=== PATIENT | female | born 1995 | race Caucasian/White ===

== ENCOUNTER 2022-01-01 11:01 | Outpatient (CLI) | payer BC | END 2022-01-01 11:02 | disposition home or self-care (01) | LOC: CSHLAB 11:01 | PROVIDERS: ATTEND Advanced Practice Midwife | DX: Z20.822 Contact with and (suspected) exposure to COVID-19 (principal) | CPT/HCPCS: 87811 ==

== ENCOUNTER 2022-01-02 18:00 | Inpatient (IN) | payer BC ==
[~2022-01-02 18:00] MED LIST: Butorphanol Tartrate 1 MG/ML VIAL SLOW IVP PRN; Carboprost 250 MCG/ML AMP IM PRN; Diphenoxylate HCl/Atropine Tablet PO PRN; HYDROcodone/Acetaminophen 5/325 mg Tablet PO PRN; Ibuprofen 800 MG TAB PO PRN; Lactated Ringer's 1,000 ML IV SCH; Lidocaine 1% (PF) 30 ML VIAL SC PRN; Methylergonovine 0.2 MG/ML VIAL IM PRN; Misoprostol 100 MCG TAB VAG SCH; Misoprostol 200 MCG TAB PR PRN; NS w/ Oxytocin 30 units 500 ML IV SCH; Ondansetron PF 4 MG/2 ML Vial IVP PRN; Penicillin G Potassium 5 MILL.UNITS in Sodium Chloride 0.9% 100 ML IVPB SCH; Promethazine HCl 25 MG/ML VIAL IM PRN; hydrALAZINE 20 MG/ML VIAL SLOW IVP PRN
[2022-01-02 21:12] VITALS: BMI 32.1
[2022-01-02 22:08] LABS: Hemoglobin 10.4 g/dL (12.0-15.5); Mean Corpuscular Hemoglobin 27.3 pg (27.0-33.0); Mean Corpuscular Volume 82.7 fl (81.6-98.3); Mean Platelet Volume 11.3 fl (7.4-10.4); Platelet Count 180 10x3/uL (150-450); RBC Distribution Width 14.2 % (11.5-14.5); Red Blood Cell (RBC) Count 3.81 10x6/uL (3.90-5.03); White Blood Cell (WBC) Count 7.1 10x3/uL (3.5-10.5)
[2022-01-02 22:18] LABS: Glucose 89 mg/dL (70-105)
[2022-01-02 22:43] LABS: HBSAg Index 0.21 S/CO (0-0.99); Hep B Surf Ag Non-Reactive S/CO (NonReactive); Syphilis Antibody Nonreactive (Nonreactive); Syphilis Antibody Index 0.05 S/CO (<1.00 Non-Reactive)
[2022-01-03] MEDS: Penicillin G 2.5 MILL.units 2.5 MILL.UNITS in Premix Bag 1 BAG IVPB SCH ×3 (12:14→21:04)
[2022-01-03] MEDS ORDERED: Fentanyl 2 mcg/Bup 0.1% Cadd 100 ML ONE (19:27)
[2022-01-03] MEDS ORDERED: Ondansetron PF 4 MG/2 ML Vial IVP PRN ×2 (21:05→22:29)
[2022-01-03] MEDS ORDERED: Acetaminophen 325 MG TAB PO PRN (21:05)
[2022-01-03] MEDS ORDERED: Naloxone HCl 0.4 mg/ml Vial IVP PRN ×4 (21:05→22:29)
[2022-01-03] MEDS ORDERED: Moisturizing Cream (Eucerin) 113 GM JAR TOP PRN ×2 (21:05→22:29)
[2022-01-03] MEDS ORDERED: Promethazine HCl 25 MG/ML VIAL IM PRN ×3 (21:05→22:29)
[2022-01-03] MEDS ORDERED: Lactated Ringer's 500 ML IV PRN (21:05)
[2022-01-03] MEDS ORDERED: ePHEDrine Sulfate 50 MG/10 ML VIAL SLOW IVP PRN (21:05)
[2022-01-03] MEDS ORDERED: diphenhydrAMINE 50 MG/ML VIAL IVP PRN ×2 (21:05→22:29)
[2022-01-03] MEDS ORDERED: Communication Order-Pharmacy FS SCH ×2 (21:15→22:30)
[2022-01-03] MEDS ORDERED: Fentanyl 2 mcg/Bupivacaine 0.1% Cassette 100 ML EPIDURAL SCH (21:15)
[2022-01-03] MEDS ORDERED: Azithromycin 500 MG VIAL ONE (21:57)
[2022-01-03] MEDS ORDERED: CEFAZOLIN 2 GM VIAL ONE (21:58)
[2022-01-03] MEDS ORDERED: Ketamine 50 MG/ML (10ML VIAL) ONE (22:06)
[2022-01-03] MEDS ORDERED: PHENYLEPHRINE-NS 100 MCG/ML 10 ML SYRINGE ONE ×2 (22:07→22:27)
[2022-01-03] MEDS ORDERED: Ondansetron PF 4 MG/2 ML Vial ONE (22:14)
[2022-01-03] MEDS ORDERED: Dexamethasone 4 mg/ml Vial ONE (22:16)
[2022-01-03] MEDS ORDERED: Morphine PF 10 MG/10 ML VIAL ONE (22:24)
[2022-01-03] MEDS ORDERED: Ketorolac Tromethamine 30 MG/ML VIAL ONE (22:28)
[2022-01-03] MEDS ORDERED: Meperidine HCl/PF 25 MG/ML VIAL SLOW IVP PRN (22:29)
[2022-01-03] MEDS ORDERED: Ketorolac Tromethamine 30 MG/ML VIAL IVP PRN (22:29)
[2022-01-03] MEDS ORDERED: Promethazine HCl 25 MG/ML VIAL IVPB PRN (22:29)
[2022-01-03] MEDS ORDERED: Promethazine HCl 25 MG SUPP PR PRN (22:29)
[2022-01-03] MEDS ORDERED: Ondansetron HCl/PF 4 MG/2 ML Vial IVP PRN (22:29)
[2022-01-03] MEDS ORDERED: Naloxone HCl 0.4 mg/ml Vial IV PRN (22:29)
[2022-01-03 22:45] LABS: RapidComm Collect By CBN
[2022-01-03] MEDS ORDERED: Oxytocin 10 UNITS/ML VIAL ONE (23:06)
[2022-01-04 00:56] LABS: D-Dimer Test 12.88 mg/L FEU (0.19-0.50); PTT 26.2 sec (22.0-33.0); Prothrombin Time 11.1 sec (9.5-12.1)
[2022-01-04] MEDS ORDERED: Lanolin Ointment 7 GM TUBE TOP PRN (02:15)
[2022-01-04] MEDS ORDERED: hydrALAZINE 20 MG/ML VIAL SLOW IVP PRN (02:15)
[2022-01-04] MEDS ORDERED: Misoprostol 200 MCG TAB PR PRN (02:15)
[2022-01-04] MEDS ORDERED: Boostrix 0.5 ML (Tdap) VIAL (>/=7 yrs of age) IM ONE (02:15)
[2022-01-04] MEDS ORDERED: Ondansetron PF 4 MG/2 ML Vial IVP PRN (02:15)
[2022-01-04] MEDS ORDERED: NS w/ Oxytocin 30 units 500 ML IV SCH (02:15)
[2022-01-04] MEDS: Penicillin G 2.5 MILL.units 2.5 MILL.UNITS in Premix Bag 1 BAG IVPB SCH ×2 (05:43→05:44)
[2022-01-04 06:01] LABS: Hemoglobin 8.7 g/dL (12.0-15.5); Mean Corpuscular Hemoglobin 26.9 pg (27.0-33.0); Mean Corpuscular Volume 84.2 fl (81.6-98.3); Mean Platelet Volume 10.6 fl (7.4-10.4); Platelet Count 175 10x3/uL (150-450); RBC Distribution Width 14.1 % (11.5-14.5); Red Blood Cell (RBC) Count 3.23 10x6/uL (3.90-5.03); White Blood Cell (WBC) Count 14.6 10x3/uL (3.5-10.5)
[2022-01-04] MEDS: Simethicone Chewable 80 MG TAB PO PRN ×2 (09:15→16:53)
[2022-01-04] MEDS: Prenatal Vitamin 1 TAB PO SCH (09:15)
[2022-01-04] MEDS: Ibuprofen 800 MG TAB PO PRN ×2 (09:16→16:54)
[2022-01-04] MEDS ORDERED: HYDROcodone/Acetaminophen 5/325 mg Tablet PO PRN (10:30)
[2022-01-04] MEDS: HYDROcodone/Acetaminophen 5/325 mg Tablet PO PRN (11:15)
[2022-01-04] MEDS: Ferrous Sulfate 325 MG TAB PO SCH (16:53)
[2022-01-05] MEDS: HYDROcodone/Acetaminophen 5/325 mg Tablet PO PRN (05:11)
[2022-01-05] MEDS: Simethicone Chewable 80 MG TAB PO PRN (05:11)
[2022-01-05] MEDS: Prenatal Vitamin 1 TAB PO SCH (08:15)
[2022-01-05] MEDS: Ferrous Sulfate 325 MG TAB PO SCH (08:15)
[2022-01-05] MEDS: Ibuprofen 800 MG TAB PO PRN (14:00)
[2022-01-05] MEDS: Simethicone Chewable 80 MG TAB PO SCH ×3 (14:03→23:00)
[2022-01-05] MEDS: Docusate 100 MG CAP PO SCH (20:14)
[2022-01-06 04:47] VITALS: TEMP 98.6
[2022-01-06] MEDS: Ferrous Sulfate 325 MG TAB PO SCH (08:29)
[2022-01-06] MEDS: Simethicone Chewable 80 MG TAB PO SCH (08:30)
[2022-01-06] MEDS: Docusate 100 MG CAP PO SCH (08:32)
[2022-01-06 09:01] VITALS: BP 126/78
[2022-01-06] MEDS: Prenatal Vitamin 1 TAB PO SCH (09:01)
[2022-01-07 17:01] LABS: RapidComm Collect By CBN; pH (Cord, venous) 7.265 (7.250-7.350)
== END 2022-01-06 12:40 | disposition home or self-care (01) | DRG 787 ==
LOC: CSHLD 19:59 → CSHPP 01-04 02:55
PROVIDERS: ADMIT Obstetrics & Gynecology; ATTEND Advanced Practice Midwife
PROC: 0U7C7ZZ Dilation of Cervix, Via Natural or Artificial Opening (ICD-10-PCS; 2022-01-03)
PROC: 10D00Z1 Extraction of Products of Conception, Low, Open Approach (ICD-10-PCS; principal; 2022-01-04)
DX: O24.420 Gestational diabetes mellitus in childbirth, diet controlled (principal); O72.1 Other immediate postpartum hemorrhage; O69.0XX0 Labor and delivery complicated by prolapse of cord, not applicable or unspecified; Z37.0 Single live birth; Z3A.38 38 weeks gestation of pregnancy; O99.824 Streptococcus B carrier state complicating childbirth; O76 Abnormality in fetal heart rate and rhythm complicating labor and delivery; Z20.822 Contact with and (suspected) exposure to COVID-19
CPT/HCPCS: 36415; 51702; 72170; 82805; 82947; 85027; 85049; 85300; 85362; 85379; 85384; 85610; 85730; 86780; 86850; 86900; 86901; 87340; 87811; J1100; J1885; J2274; J2405; J2540; J2590